=== PATIENT | male | born 1975 | race Caucasian/White ===

== ENCOUNTER 2016-05-21 14:55 | Emergency (ER) | payer OTHER ==
[2016-05-21 15:59] VITALS: TEMP 99.1
[2016-05-21] MEDS ORDERED: SODIUM CHLORIDE 0.9% 1,000 ML IV ONE (16:50)
--- NOTE | 2016-05-21 16:59 | ED ---
General Adult HPI - General Chief complaint: Fever Stated complaint: lightheaded/shaky/lungs hurt Time Seen by Provider: 05/21/16 16:29 Source: patient, RN notes reviewed Mode of arrival: wheelchair Limitations: no limitations - History of Present Illness Initial comments: 41-year-old male presenting for fevers and chills. Patient states he's had body aches associated with this as well for the past week or so. States that he has been donating plasma every week for several months. He states that the last 2 times he was at the plasma donation center he was told he was unable to donate because he had a low-grade fever of 100.3. States that he is feeling some shortness of breath associated as well. He denies any chest pain associated. He has not tried medications to help his symptoms. He has not followed up with his regular doctor recently. He denies any abdominal pain or nausea or vomiting. - Related Data Home Medications Medication Instructions Recorded Confirmed No Known Home Medications [No 05/21/16 05/21/16 Known Home Medications] Allergies Allergy/AdvReac Type Severity Reaction Status Date / Time Mushroom Allergy Unknown Verified 05/21/16 17:16 clarithromycin [From Biaxin] AdvReac Nausea & Verified 05/21/16 17:16 Vomiting codeine AdvReac Nausea & Verified 05/21/16 17:16 Vomiting Penicillins AdvReac Nausea & Verified 05/21/16 17:16 Vomiting Review of Systems ROS Statement: Those systems with pertinent positive or pertinent negative responses have been documented in the HPI. ROS Other: All systems not noted in ROS Statement are negative. Past Medical History Past Medical History: No Reported History History of Any Multi-Drug Resistant Organisms: None Reported Past Surgical History: Hernia Repair Past Psychological History: No Psychological Hx Reported Smoking Status: Current every day smoker Past Alcohol Use History: None Reported Past Drug Use History: None Reported General Exam - General Exam Comments Initial Comments: General: Awake and Alert. No acute distress. Does not appear acutely ill. Eyes: JULIA, EOM intact. No nystagmus. No scleral icterus. HENT: Atraumatic, normocephalic. Mucous membranes moist. Trachea midline. Neck: The neck is supple, there is no tenderness or JVD. Cardiovascular: Regular rate and rhythm. No murmur, rub, or gallop is appreciated. Distal pulses intact. Respiratory: Lungs are clear to auscultation bilaterally. No wheezes, rales, rhonchi. No respiratory distress. Gastrointestinal: Soft, Nontender. No rebound or guarding. Non-distended. No masses or organomegaly noted. No CVA tenderness. Musculoskeletal: No tenderness. Normal ROM. No gross deformity. No strength deficits. Neurological: A&Ox3. CN II-XII grossly intact, There are no obvious motor or sensory deficits. Coordination appears grossly intact. Speech is normal. Skin: Skin is warm and dry and no rashes or lesions are noted. Psychiatric: Cooperative, appropriate mood & affect, normal judgment. Limitations: no limitations Course Vital Signs 05/21/16 05/21/16 05/21/16 15:57 17:02 18:59 Temperature 99.1 F 99.1 F Pulse Rate 74 87 Respiratory 18 16 18 Rate Blood Pressure 128/88 119/87 O2 Sat by Pulse 98 98 Oximetry EKG Findings - EKG Comments: EKG Findings:: EKG 16:06. Normal sinus rhythm. Rate 77. CA 134. QRS 76. QT/ QTc 354/400. Rightward axis. No STEMI. Nonspecific EKG. Medical Decision Making - Medical Decision Making 41-year-old male presenting for fevers and generalized malaise for the past week or so. Initial vitals are stable, afebrile in the ED currently. Patient does state that he donates plasma weekly. On exam he does not appear acutely ill at this time. He does not appear acutely septic. Chest x-ray no acute process Lab work with nonspecific leukocytosis, possibly reactive. Otherwise stable CBC. BMP stable. Influenza testing is negative. UA without infection Patient reevaluated and remained stable. Updated on results and imaging. Discussed nonspecific etiology of his symptoms and fevers. Discussed possible viral syndrome. Discussed lower suspicion of bacteremia at this time. Discussed recommendation to stop donating plasma as he may also have some reactive leukocytosis and fever secondary to this. Discussed close follow-up with PCP for further management and evaluation. Discussed concerning signs symptoms for immediate return to the ED. Patient agreeable with plan and discharge home. Work note provided. - Lab Data Result diagrams: 05/21/16 16:58 05/21/16 16:58 Lab Results 05/21/16 05/21/16 05/21/16 Range/Units 16:58 16:58 16:58 WBC 13.2 H (3.8-10.6) k/uL RBC 5.60 (4.30-5.90) m/uL Hgb 17.6 H (13.0-17.5) gm/dL Hct 52.9 (39.0-53.0) % MCV 94.5 (80.0-100.0) fL MCH 31.4 (25.0-35.0) pg MCHC 33.2 (31.0-37.0) g/dL RDW 13.3 (11.5-15.5) % Plt Count 279 (150-450) k/uL Neutrophils % 81 % Lymphocytes % 11 % Monocytes % 4 % Eosinophils % 1 % Basophils % 1 % Neutrophils # 10.6 H (1.3-7.7) k/uL Lymphocytes # 1.5 (1.0-4.8) k/uL Monocytes # 0.6 (0-1.0) k/uL Eosinophils # 0.2 (0-0.7) k/uL Basophils # 0.1 (0-0.2) k/uL Sodium 140 (137-145) mmol/L Potassium 4.8 (3.5-5.1) mmol/L Chloride 104 (98-107) mmol/L Carbon Dioxide 27 (22-30) mmol/L Anion Gap 9 mmol/L BUN 11 (9-20) mg/dL Creatinine 0.99 (0.66-1.25) mg/dL Est GFR (MDRD) Af Amer >60 (>60 ml/min/1.73 sqM) Est GFR (MDRD) Non-Af >60 (>60 ml/min/1.73 sqM) Glucose 93 (74-99) mg/dL Calcium 9.7 (8.4-10.2) mg/dL Urine Color Urine Appearance (Clear) Urine pH (5.0-8.0) Ur Specific [place] (1.001-1.035) Urine Protein (Negative) Urine Glucose (UA) (Negative) Urine Ketones (Negative) Urine Blood (Negative) Urine Nitrite (Negative) Urine Bilirubin (Negative) Urine Urobilinogen (<2.0) mg/dL Ur Leukocyte Esterase (Negative) Influenza Type A RNA Not Detected (Not Detectd) Influenza Type B (PCR) Not Detected (Not Detectd) 05/21/16 Range/Units 18:20 WBC (3.8-10.6) k/uL RBC (4.30-5.90) m/uL Hgb (13.0-17.5) gm/dL Hct (39.0-53.0) % MCV (80.0-100.0) fL MCH (25.0-35.0) pg MCHC (31.0-37.0) g/dL RDW (11.5-15.5) % Plt Count (150-450) k/uL Neutrophils % % Lymphocytes % % Monocytes % % Eosinophils % % Basophils % % Neutrophils # (1.3-7.7) k/uL Lymphocytes # (1.0-4.8) k/uL Monocytes # (0-1.0) k/uL Eosinophils # (0-0.7) k/uL Basophils # (0-0.2) k/uL Sodium (137-145) mmol/L Potassium (3.5-5.1) mmol/L Chloride (98-107) mmol/L Carbon Dioxide (22-30) mmol/L Anion Gap mmol/L BUN (9-20) mg/dL Creatinine (0.66-1.25) mg/dL Est GFR (MDRD) Af Amer (>60 ml/min/1.73 sqM) Est GFR (MDRD) Non-Af (>60 ml/min/1.73 sqM) Glucose (74-99) mg/dL Calcium (8.4-10.2) mg/dL Urine Color Yellow Urine Appearance Clear (Clear) Urine pH 5.5 (5.0-8.0) Ur Specific [place] 1.010 (1.001-1.035) Urine Protein Negative (Negative) Urine Glucose (UA) Negative (Negative) Urine Ketones Negative (Negative) Urine Blood Negative (Negative) Urine Nitrite Negative (Negative) Urine Bilirubin Negative (Negative) Urine Urobilinogen <2.0 (<2.0) mg/dL Ur Leukocyte Esterase Negative (Negative) Influenza Type A RNA (Not Detectd) Influenza Type B (PCR) (Not Detectd) - EKG Data -: EKG Interpreted by Or EKG shows normal: sinus rhythm Rate: normal - Radiology Data Radiology results: report reviewed, image reviewed Disposition Clinical Impression: Leukocytosis, Fever, Malaise, Tobacco abuse Disposition: HOME SELF-CARE Condition: Stable Instructions: Fever in Adults (ED), Fatigue (ED) Referrals: Yolis Amaro MD [Primary Care Provider] - 1-2 days Time of Disposition: 18:55
[2016-05-21 17:11] LABS: Basophils # (A) 0.1 k/uL (0-0.2); Basophils % (A) 1 %; CH 32.2; CHCM 34.2; Eosinophils # (A) 0.2 k/uL (0-0.7); Eosinophils % (A) 1 %; HCT 52.9 % (39.0-53.0); HGB 17.6 gm/dL (13.0-17.5); Luc # (Auto) 0.19; Luc % (Auto) 1; Lymphocytes # (A) 1.5 k/uL (1.0-4.8); Lymphocytes % (A) 11 %; MCH 31.4 pg (25.0-35.0); MCHC 33.2 g/dL (31.0-37.0); MCV 94.5 fL (80.0-100.0); Mean Platelet Volume 7.3; Monocytes # (A) 0.6 k/uL (0-1.0); Monocytes % (A) 4 %; Neutrophils # (A) 10.6 k/uL (1.3-7.7); Neutrophils % (A) 81 %; RDW 13.3 % (11.5-15.5); WBC 13.2 k/uL (3.8-10.6); WBC (Perox) 13.29
--- NOTE | 2016-05-21 17:11 | XR ---
EXAMINATION TYPE: XR chest 2V DATE OF EXAM: 05/21/2016 5:06 PM COMPARISON: 07/03/2012 HISTORY: Chest pain TECHNIQUE: Frontal and lateral views of the chest are obtained. FINDINGS: Heart and mediastinum are normal. Lungs are clear of consolidation. There are no hilar mas ses. There are chest leads. Bony thorax is intact. Diaphragm is normal. IMPRESSION: Normal chest. No change.
[2016-05-21 17:21] LABS: Anion Gap 9 mmol/L; Blood Urea Nitrogen 11 mg/dL (9-20); Calcium 9.7 mg/dL (8.4-10.2); Carbon Dioxide 27 mmol/L (22-30); Chloride 104 mmol/L (98-107); Glucose 93 mg/dL (74-99); Non-African American GFR(MDRD) >60 (>60 ml/min/1.73 sqM); Potassium 4.8 mmol/L (3.5-5.1); Sodium 140 mmol/L (137-145)
[2016-05-21 18:27] LABS: Appearance,Urine Clear (Clear); Bilirubin,Urine Negative (Negative); Glucose,Urine (UA) Negative (Negative); Ketones,Urine Negative (Negative); Leukocyte Esterase,Urine Negative (Negative); Nitrite,Urine Negative (Negative); PH, Urine 5.5 (5.0-8.0); Protein,Urine Negative (Negative); UA Billing (MACRO vs. MICRO) CHEM; Urobilinogen,Urine <2.0 mg/dL (<2.0)
[2016-05-21 19:06] VITALS: BP 119/87; PULSE 87; RESP 18
== END 2016-05-21 19:05 | disposition home or self-care (01) ==
LOC: EC 14:55
DX: D72.829 Elevated white blood cell count, unspecified (principal); R53.81 Other malaise; R50.9 Fever, unspecified; R06.02 Shortness of breath; R52 Pain, unspecified; F17.200 Nicotine dependence, unspecified, uncomplicated
CPT/HCPCS: 36415; 71020; 80048; 81003; 85025; 87502; 93005; 96360; 96361; 99283

== ENCOUNTER 2016-09-29 00:31 | Emergency (ER) | payer OTHER ==
[2016-09-29 00:34] VITALS: BP 157/92; PULSE 71; RESP 18; TEMP 98.9
[2016-09-29] MEDS ORDERED: HYDROcodone/APAP 5-325MG 1 EACH TAB PO STA (01:47)
[2016-09-29] MEDS ORDERED: CLINDAMYCIN 150 MG CAP PO STA (01:48)
--- NOTE | 2016-09-29 01:52 | ED ---
ENT HPI - General Chief complaint: Dental/Oral Stated complaint: dental pain Time Seen by Provider: 09/29/16 01:13 Source: patient, RN notes reviewed Mode of arrival: ambulatory Limitations: no limitations - History of Present Illness Initial comments: Patient is a 41-year-old male presents emergency room for evaluation abdominal pain. Patient states abdominal pain for the past 3 days. Patient states he does have a tooth in his right lower area that had broke off a long time ago. Patient states been taking ibuprofen only for symptoms. Patient states he is planning on calling a dentist tomorrow. Patient denies any facial swelling. Patient denies fevers or chills. Patient denies nausea or vomiting. Patient denies trouble swallowing. - Related Data Previous Rx's Medication Instructions Recorded Clindamycin [Cleocin] 300 mg PO Q6H #40 capsule 09/29/16 HYDROcodone/APAP 5-325MG [[place] 1 tab PO Q6HR PRN #12 tab 09/29/16 5-325] Allergies Allergy/AdvReac Type Severity Reaction Status Date / Time Mushroom Allergy Unknown Verified 09/29/16 00:34 clarithromycin [From Biaxin] AdvReac Nausea & Verified 09/29/16 00:34 Vomiting codeine AdvReac Nausea & Verified 09/29/16 00:34 Vomiting Penicillins AdvReac Nausea & Verified 09/29/16 00:34 Vomiting Review of Systems ROS Statement: Those systems with pertinent positive or pertinent negative responses have been documented in the HPI. ROS Other: All systems not noted in ROS Statement are negative. Past Medical History Past Medical History: No Reported History History of Any Multi-Drug Resistant Organisms: None Reported Past Surgical History: Hernia Repair Past Psychological History: No Psychological Hx Reported Smoking Status: Current every day smoker Past Alcohol Use History: None Reported Past Drug Use History: None Reported General Exam - General Exam Comments Initial Comments: Sitting in exam room, no acute distress. Limitations: no limitations General appearance: alert, in no apparent distress Head exam: Present: atraumatic, normocephalic, normal inspection Eye exam: Present: normal appearance Expanded Mouth exam: Present: normal external inspection Teeth exam: Present: fractured tooth # ( Partially eroded tooth #31), dental tenderness # (31) Throat exam: normal inspection Neck exam: Present: normal inspection Respiratory exam: Present: normal lung sounds bilaterally. Absent: respiratory distress Cardiovascular Exam: Present: regular rate, normal rhythm, normal heart sounds Extremities exam: Present: normal inspection Back exam: Present: normal inspection Neurological exam: Present: alert, oriented X3, CN II-XII intact Psychiatric exam: Present: normal affect, normal mood Skin exam: Present: warm, dry, intact, normal color. Absent: rash Course Vital Signs 09/29/16 00:32 Temperature 98.9 F Pulse Rate 71 Respiratory 18 Rate Blood Pressure 157/92 O2 Sat by Pulse 98 Oximetry Medical Decision Making - Medical Decision Making Patient is a 41-year-old male since emergency room for violation of dental pain. Patient will be sent home on antibiotics and pain medications and advised to follow-up with a dentist. Patient states he understands everything that was discussed with him. Return parameters discussed. Disposition Clinical Impression: Pain, dental, Dental caries Disposition: HOME SELF-CARE Condition: Good Instructions: Dental Caries (ED), Toothache (ED) Additional Instructions: Please follow up with a dentist. If you do not have a dentist, you may contact [facility]. Phone number is [phone] for existing clients. For new clients you may call [phone]. Another option is you have is the [facility]. Phone number is [phone]. Medications as directed. [place] gargles. Cold fluids can sometimes help with pain as well. Return to the Emergency Room for any worsening or changing symptoms. Use cold compresses to the outside of the face. Prescriptions: HYDROcodone/APAP 5-325MG [[place] 5-325] 1 tab PO Q6HR PRN #12 tab PRN Reason: Pain Clindamycin [Cleocin] 300 mg PO Q6H #40 capsule Referrals: Yolis Amaro MD [Primary Care Provider] - 1-2 days Time of Disposition: 01:49
== END 2016-09-29 01:59 | disposition home or self-care (01) ==
LOC: EC 00:31
DX: K08.89 Other specified disorders of teeth and supporting structures (principal); S02.5XXA Fracture of tooth (traumatic), initial encounter for closed fracture; R10.9 Unspecified abdominal pain; F17.200 Nicotine dependence, unspecified, uncomplicated; Z88.0 Allergy status to penicillin; Z88.1 Allergy status to other antibiotic agents; Z88.5 Allergy status to narcotic agent; Z91.018 Allergy to other foods
CPT/HCPCS: 99282

== ENCOUNTER 2016-10-29 13:57 | Emergency (ER) | payer OTHER ==
--- NOTE | 2016-10-29 14:23 | ED ---
General Adult HPI - General Chief complaint: Abdominal Pain Stated complaint: Poss Hernia Time Seen by Provider: 10/29/16 14:20 Source: patient Mode of arrival: ambulatory Limitations: no limitations - History of Present Illness Initial comments: Patient is a 41-year-old male who presents to the ED via private vehicle for evaluation of lower left abdominal and groin pain radiating into his testicle. Patient reports that on Thursday of last week he spotted what he believed to be a bedbug on his couch, he made the immediate decision to picker box operator the couch and take it out of his house. He did this without help. He reports that when picking up the couch he felt severe pain in his lower abdomen. He reports that throughout the week and he had persistent pain in his left lower groin region radiating into his testicle. Pain is sharp and constant, worse with any form of movement or palpation but with no relieving factors. Patient states that due to the pain he has had decreased appetite, waves of nausea and hot flashes. He reports he still having bowel movements but he feels there smaller in volume than usual. Patient also has a history of hemorrhoids which he reports are currently flared up in her bleeding, he is followed with a surgeon in the past for this but is recommended symptomatic therapy rather than surgical intervention. Patient does have a history of umbilical hernia repair in the past however no history of inguinal hernias that he is aware of. Onset/Timin -: days(s) Quality: sharp Consistency: constant Improves with: none Worsens with: movement Associated Symptoms: fever/chills, loss of appetite, nausea/vomiting Treatments Prior to Arrival: none - Related Data Home Medications Medication Instructions Recorded Confirmed Ibuprofen [Motrin] 600 mg PO Q6HR PRN 10/29/16 10/29/16 Allergies Allergy/AdvReac Type Severity Reaction Status Date / Time Mushroom Allergy Unknown Verified 10/29/16 14:12 clarithromycin [From Biaxin] AdvReac Nausea & Verified 10/29/16 14:12 Vomiting codeine AdvReac Nausea & Verified 10/29/16 14:12 Vomiting Penicillins AdvReac Nausea & Verified 10/29/16 14:12 Vomiting Review of Systems ROS Statement: Those systems with pertinent positive or pertinent negative responses have been documented in the HPI. ROS Other: All systems not noted in ROS Statement are negative. Constitutional: Reports: fever ENT: Denies: throat pain Respiratory: Denies: cough, dyspnea Cardiovascular: Denies: chest pain, palpitations Endocrine: Denies: fatigue Gastrointestinal: Reports: nausea, hematochezia (bleeding hemorrhoid). Denies: vomiting, diarrhea, constipation Genitourinary: Reports: testicular pain, other. Denies: urgency, dysuria, frequency Skin: Denies: rash Neurological: Denies: weakness Hematological/Lymphatic: Denies: easy bleeding, easy bruising Past Medical History Past Medical History: No Reported History History of Any Multi-Drug Resistant Organisms: None Reported Past Surgical History: Hernia Repair (umbilical) Past Psychological History: No Psychological Hx Reported Smoking Status: Current every day smoker Past Alcohol Use History: None Reported Past Drug Use History: None Reported General Exam Limitations: no limitations General appearance: alert, in no apparent distress Head exam: Present: atraumatic, normocephalic Eye exam: Present: normal appearance ENT exam: Present: normal exam Neck exam: Present: normal inspection Respiratory exam: Absent: respiratory distress Cardiovascular Exam: Present: regular rate GI/Abdominal exam: Present: soft. Absent: distended, tenderness exam: Present: normal inspection, circumcision. Absent: urethral discharge Extremities exam: Present: normal inspection Back exam: Present: normal inspection Neurological exam: Present: alert, oriented X3, CN II-XII intact Psychiatric exam: Present: normal affect, normal mood Skin exam: Present: warm, dry, intact, normal color. Absent: rash Course Vital Signs 10/29/16 10/29/16 10/29/16 14:03 16:00 16:35 Temperature 100.3 F H 100 F H Pulse Rate 94 74 78 Respiratory 20 18 18 Rate Blood Pressure 125/85 135/66 148/79 O2 Sat by Pulse 99 98 96 Oximetry Medical Decision Making - Medical Decision Making Patient seen and evaluated History obtained from the patient Physical exam with possible small reducible left inguinal hernia, tenderness on exam Physical exam was chaperoned by [facility] and computed tomography scan ordered Labs a mild leukocytosis likely react to acute pain CT with no acute findings, however this does not rule out a reducible inguinal hernia results were discussed with the patient who expresses relief. I advised the patient he needs to follow up with a general surgeon for reevaluation of a possible inguinal hernia as well as for reevaluation of his chronic hemorrhoids. Patient expressed machining and agreement with plan. All questions pertaining to care were answered to the best of my ability and the patient was discharged home in stable condition - Lab Data Result diagrams: 10/29/16 14:59 10/29/16 14:59 Lab Results 10/29/16 10/29/16 10/29/16 Range/Units 14:59 14:59 14:59 WBC 11.9 H (3.8-10.6) k/uL RBC 4.95 (4.30-5.90) m/uL Hgb 15.3 (13.0-17.5) gm/dL Hct 45.2 (39.0-53.0) % MCV 91.2 (80.0-100.0) fL MCH 31.0 (25.0-35.0) pg MCHC 33.9 (31.0-37.0) g/dL RDW 14.9 (11.5-15.5) % Plt Count 265 (150-450) k/uL Neutrophils % 79 % Lymphocytes % 13 % Monocytes % 5 % Eosinophils % 1 % Basophils % 1 % Neutrophils # 9.3 H (1.3-7.7) k/uL Lymphocytes # 1.6 (1.0-4.8) k/uL Monocytes # 0.6 (0-1.0) k/uL Eosinophils # 0.2 (0-0.7) k/uL Basophils # 0.1 (0-0.2) k/uL Sodium 141 (137-145) mmol/L Potassium 5.0 (3.5-5.1) mmol/L Chloride 107 (98-107) mmol/L Carbon Dioxide 25 (22-30) mmol/L Anion Gap 9 mmol/L BUN 12 (9-20) mg/dL Creatinine 0.99 (0.66-1.25) mg/dL Est GFR (MDRD) Af Amer >60 (>60 ml/min/1.73 sqM) Est GFR (MDRD) Non-Af >60 (>60 ml/min/1.73 sqM) Glucose 90 (74-99) mg/dL Calcium 9.8 (8.4-10.2) mg/dL Urine Color Yellow Urine Appearance Clear (Clear) Urine pH 5.5 (5.0-8.0) Ur Specific [place] 1.013 (1.001-1.035) Urine Protein Negative (Negative) Urine Glucose (UA) Negative (Negative) Urine Ketones Negative (Negative) Urine Blood Negative (Negative) Urine Nitrite Negative (Negative) Urine Bilirubin Negative (Negative) Urine Urobilinogen <2.0 (<2.0) mg/dL Ur Leukocyte Esterase Negative (Negative) Disposition Clinical Impression: Strain of abdominal muscle, Reducible left inguinal hernia, Bleeding hemorrhoids Disposition: HOME SELF-CARE Condition: Good Instructions: Muscle Strain (ED), Groin Strain (ED) Referrals: Yolis Amaro MD [Primary Care Provider] - 1-2 days Lucina Knapp MD [STAFF PHYSICIAN] - 1-2 days
[2016-10-29] MEDS ORDERED: RX INFO: IV CONTRAST WAS GIVEN 1 EACH MISC MISCELLANE PRN (14:38)
[2016-10-29] MEDS ORDERED: SODIUM CHLORIDE 0.9% 1,000 ML IV ONE (14:50)
[2016-10-29 15:27] LABS: Appearance,Urine Clear (Clear); Basophils # (A) 0.1 k/uL (0-0.2); Basophils % (A) 1 %; Bilirubin,Urine Negative (Negative); CH 31.9; CHCM 35.1; Eosinophils # (A) 0.2 k/uL (0-0.7); Eosinophils % (A) 1 %; Glucose,Urine (UA) Negative (Negative); HCT 45.2 % (39.0-53.0); HDW 2.59; HGB 15.3 gm/dL (13.0-17.5); Ketones,Urine Negative (Negative); Leukocyte Esterase,Urine Negative (Negative); Luc # (Auto) 0.17; Luc % (Auto) 1; Lymphocytes # (A) 1.6 k/uL (1.0-4.8); Lymphocytes % (A) 13 %; MCHC 33.9 g/dL (31.0-37.0); MCV 91.2 fL (80.0-100.0); Mean Platelet Volume 8.3; Monocytes # (A) 0.6 k/uL (0-1.0); Monocytes % (A) 5 %; Neutrophils # (A) 9.3 k/uL (1.3-7.7); Neutrophils % (A) 79 %; Nitrite,Urine Negative (Negative); PH, Urine 5.5 (5.0-8.0); Protein,Urine Negative (Negative); RBC 4.95 m/uL (4.30-5.90); RDW 14.9 % (11.5-15.5); Specific Gravity,Urine 1.013 (1.001-1.035); UA Billing (MACRO vs. MICRO) CHEM; Urobilinogen,Urine <2.0 mg/dL (<2.0); WBC 11.9 k/uL (3.8-10.6); WBC (Perox) 11.56
[2016-10-29 15:38] LABS: Anion Gap 9 mmol/L; Blood Urea Nitrogen 12 mg/dL (9-20); Calcium 9.8 mg/dL (8.4-10.2); Carbon Dioxide 25 mmol/L (22-30); Chloride 107 mmol/L (98-107); Glucose 90 mg/dL (74-99); Non-African American GFR(MDRD) >60 (>60 ml/min/1.73 sqM); Sodium 141 mmol/L (137-145)
--- NOTE | 2016-10-29 16:02 | CT ---
EXAMINATION TYPE: CT abdomen pelvis w con DATE OF EXAM: 10/29/2016 COMPARISON: NONE HISTORY: lower abdominal pain, possible inguinal hernia CT DLP: 1237 mGycm, Automated Exposure Control for Dose Reduction was Utilized. CONTRAST: CT scan of the abdomen and pelvis is performed without oral and with IV Contrast, patient injected wi th 100 mL of Omnipaque 300. FINDINGS: LUNG BASES: No significant abnormality is appreciated. LIVER/GB: No significant abnormality is appreciated. PANCREAS: No significant abnormality is seen. SPLEEN: No significant abnormality is seen. ADRENALS: No significant abnormality is seen. KIDNEYS: No significant abnormality is seen. BOWEL: Normal-appearing appendix is present. There is no suspicious small or large bowel dilatation. PROSTATE/SEMINAL VESICLES: No gross abnormality seen. LYMPH NODES: No greater than 1cm abdominal or pelvic lymph nodes are appreciated. OSSEOUS STRUCTURES: There is multilevel facet arthropathy in the lower lumbar spine. There is posteri or disc herniation L5-S1 level seen on sagittal image 34. OTHER: No suspicious bowel or fat-containing inguinal hernia is present IMPRESSION: No significant acute finding is seen to account for patient's clinical symptoms.
[2016-10-29 16:07] VITALS: RESP 18
[2016-10-29 16:36] VITALS: BP 148/79; PULSE 78; TEMP 100
== END 2016-10-29 16:39 | disposition home or self-care (01) ==
LOC: EC 13:57
DX: S39.011A Strain of muscle, fascia and tendon of abdomen, initial encounter (principal); K40.90 Unilateral inguinal hernia, without obstruction or gangrene, not specified as recurrent; K64.9 Unspecified hemorrhoids; D72.829 Elevated white blood cell count, unspecified; R63.0 Anorexia; F17.200 Nicotine dependence, unspecified, uncomplicated; Z88.0 Allergy status to penicillin; Z88.1 Allergy status to other antibiotic agents; Z88.5 Allergy status to narcotic agent; Z91.018 Allergy to other foods; Z98.890 Other specified postprocedural states; X50.0XXA Overexertion from strenuous movement or load, initial encounter; Y92.009 Unspecified place in unspecified non-institutional (private) residence as the place of occurrence of the external cause
CPT/HCPCS: 36415; 80048; 85025; 81003; 74177; 99284; 96360; 96361; Q9967